=== PATIENT | male | born 1955 | race Caucasian/White ===

== ENCOUNTER → 2016-08-15 | Outpatient (CLI) | payer BC | END | disposition home or self-care (01) | LOC: GMAB 10:43 | PROVIDERS: ATTEND Family Medicine | DX: Z00.01 Encounter for general adult medical examination with abnormal findings (principal) ==

== ENCOUNTER → 2018-05-17 | Outpatient (CLI) | payer BC | LOC: GMAE 10:28 | PROVIDERS: ATTEND Family Medicine | DX: Z00.01 Encounter for general adult medical examination with abnormal findings (principal) ==

== ENCOUNTER → 2018-05-25 | Outpatient (CLI) | payer BC ==
--- NOTE | 2018-05-25 16:52 | US ---
EXAM DESCRIPTION: Aorta: Ultrasound. CLINICAL HISTORY: ENCOUNTER FOR SCREENING FOR OTHER DISORDER COMPARISON: None. TECHNIQUE: Transcutaneous scanning: Two-dimensional and Doppler modes. FINDINGS: Abdominal aorta diameter - Proximal: 3.0 x 2.9 x 2.2 cm. Mid: 2.7 x 2.1 x 1.7 cm. Distal: 2.5 x 1.8 x 1.7 cm. Common Iliac diameter - Right: 10 mm. Left: 12 mm. Other: Atherosclerotic calcification and intimal.. IMPRESSION: Ectasia of the proximal and mid abdominal aorta no definite aneurysm. Normal tapering. No Further imaging follow-up is recommended. Electronically signed by: Helder Roldan MD 05/25/2018 4:49 PM CDT
== END ==
LOC: US 08:25
PROVIDERS: ATTEND Family Medicine
DX: Z13.89 Encounter for screening for other disorder (principal); I77.811 Abdominal aortic ectasia

== ENCOUNTER 2018-08-04 05:35 | Day surgery (SDC) | payer BC ==
[2018-08-04] MEDS ORDERED: LACTATED RINGERS 1,000 ML ONE (07:11)
[2018-08-04] MEDS ORDERED: LACTATED RINGERS 1,000 ML IVS ONE (07:55)
--- NOTE | 2018-08-04 08:35 | OP ---
DATE OF PROCEDURE: 08/04/18 PREOPERATIVE DIAGNOSIS: 1. Colorectal cancer screen. POSTOPERATIVE DIAGNOSIS: 1. Colonoscopy to the cecum. 2. Diverticulosis. PROCEDURE: 1. Colonoscopy. SURGEON: Gurpreet Weiss MD. COMPLICATIONS: None. ANESTHESIA: MAC. INDICATION: Screening colonoscopy. PROCEDURE: Informed consent was obtained prior to sedation. The preprocedure cardiopulmonary assessment was satisfactory. The patient was placed in the left lateral decubitus position and was sedated. The tip of the Olympus colonoscope was inserted in the rectum and guided through the entire colon under direct visualization. The cecum was identified. The ileocecal valve and appendiceal orifice appeared normal. Slow withdrawal was started at this time. Colonoscopy prep was good. Slow withdrawal showed evidence of diverticulosis in the descending colon and sigmoid colon. Retroflexion view of the anorectal area showed hemorrhoids, grade 1. No other abnormalities were identified. The scope was then slowly withdrawn from the patient and the procedure was terminated. RECOMMENDATION: 1. Repeat colonoscopy in 10 years. 2. Cologuard stool sample in 3 years and every 3 years until next recommended colonoscopy. Repeat colonoscopy immediately if Cologuard stool sample is positive. 3. Regular diet. 4. Resume home medications. 5. Followup with GI as needed. #[id number] [facility]
[2018-08-04 09:45] VITALS: BP 121/77; TEMP 97.2; O2SAT 99
[2018-08-04] MEDS ORDERED: PROPOFOL 200 MG/20 ML VIAL IV ONE (10:00)
[2018-08-04] MEDS ORDERED: LIDOCAINE 1% 10 ML VIAL INJ ONE (10:00)
== END 2018-08-04 09:00 | disposition home or self-care (01) ==
LOC: AMB 05:35
DX: Z12.11 Encounter for screening for malignant neoplasm of colon (principal); K57.30 Diverticulosis of large intestine without perforation or abscess without bleeding; K64.0 First degree hemorrhoids; E78.00 Pure hypercholesterolemia, unspecified; E66.9 Obesity, unspecified; Z68.31 Body mass index [BMI] 31.0-31.9, adult; Z79.899 Other long term (current) drug therapy
CPT/HCPCS: 00812; 45378; J3490; J7120

== ENCOUNTER 2018-10-11 06:12 | Emergency (ER) | payer BC ==
[2018-10-11] MEDS ORDERED: KETOROLAC TROMETHAMINE INJ 30 MG/ML VIAL IV ONE (06:41)
--- NOTE | 2018-10-11 06:58 | ED.PDOC ---
History of Present Illness - General Chief Complaint: Problem Stated Complaint: low back flank pain, hx kidney stones Time Seen by Provider: 10/11/18 06:33 Source: patient Exam Limitations: no limitations Additional Information: Pt w cc of right flank pain beginning at midnight. Pain is sharp, 7/10. Pain is constant, not improved or relieved w any factors. Pt w h/o similar sxs in the past w kidney stones. Pt has had surgery for this, basket retrieval but pt is unclear. Pt is o/w asx. Neg CP, SOB, AP, dysuria, hematuria, vomiting. Positive nausea. - History of Present Illness Allergies/Adverse Reactions: Allergies NO KNOWN ALLERGY Allergy (Verified 05/13/15 16:58) Home Medications: Ambulatory Orders Atorvastatin Calcium [Lipitor] 20 mg PO BEDTIME 07/30/18 RX: Meloxicam [Mobic] 1 tablet PO BID 07/30/18 Review of Systems - Review of Systems Constitutional: States: no symptoms reported. Denies: diaphoresis, fever EENTM: States: no symptoms reported Respiratory: States: no symptoms reported. Denies: orthopnea, short of breath Cardiology: States: no symptoms reported. Denies: chest pain Gastrointestinal/Abdominal: States: no symptoms reported, nausea. Denies: abdominal pain, vomiting Musculoskeletal: States: back pain - right flank Skin: States: no symptoms reported Neurological: States: no symptoms reported. Denies: headache Endocrine: States: no symptoms reported Hematologic/Lymphatic: States: no symptoms reported All other Systems: Reviewed and Negative Past Medical History (General) - Patient Medical History Hx Stroke: No Hx Congestive Heart Failure: No Hx Diabetes: No Hx Renal Disease: Yes - hx kidney stones Hx MRSA: No Surgical History: other - Vaccination History Hx Tetanus, Diphtheria Vaccination: No Hx Influenza Vaccination: No Hx Pneumococcal Vaccination: No - Social History Hx Tobacco Use: No Hx Alcohol Use: Yes Hx Substance Use: No Hx Substance Use Treatment: No Hx Depression: No - Female History Patient : No Family Medical History - Family History Mother Family History: Unknown Physical Exam - Physical Exam General Appearance: Anxious, Well Developed, Well Nourished, Other - writhing in bed, uncomfortable Eyes, Ears, Nose, Throat Exam: PERRL/EOMI, normal ENT inspection Neck: full range of motion, supple Cardiovascular/Respiratory: regular rate, rhythm, normal breath sounds, no respiratory distress Gastrointestinal/Abdominal: normal bowel sounds, non tender, soft, no organomegaly, no pulsatile mass Back Exam: normal inspection, CVA tenderness (R) - mild Extremity: normal range of motion, non-tender, no pedal edema 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 10/11/18 08:38 Pt w 8mm stone on CT w severe hydronephrosis and creatinine of 1.4, unclear if elevatation is new or not. Pt will not be able to pass stone on his own, will transfer to [place] for urology consult and definitive mgmt. Have d/w Dr. Ruelas, hospitalist at [facility], who accepts pt in transfer. Pt's VS are stable and he is medical clear for transfer. Pt accepts transfer for higher level of care. - Results/Orders Results/Orders: 10/11/18 08:18 Sodium Chloride 0.9% 1000ML [Ns 1000 ml] 1,000 ml IVS ONCE Laboratory Results WBC 9.1 K/mm3 (4.8-10.8) 10/11/18 06:40 RBC 5.04 M/mm3 (4.70-6.10) 10/11/18 06:40 Hgb 15.8 gm/dL (14.0-18.0) 10/11/18 06:40 Hct 47.0 % (42.0-52.0) 10/11/18 06:40 MCV 93.2 fl (80.0-94.0) 10/11/18 06:40 MCH 31.4 pg (27.0-31.0) H 10/11/18 06:40 MCHC 33.7 g/dL (33.0-37.0) 10/11/18 06:40 RDW 13.9 % (11.5-14.5) 10/11/18 06:40 Plt Count 209 K/mm3 (130-400) 10/11/18 06:40 MPV 8.3 fl (7.40-10.4) 10/11/18 06:40 Absolute Neuts (auto) 7.20 K/uL (1.8-6.8) H 10/11/18 06:40 Absolute Lymphs (auto) 1.00 K/uL (1.0-3.4) 10/11/18 06:40 Absolute Monos (auto) 0.60 K/uL (0.2-0.8) 10/11/18 06:40 Absolute Eos (auto) 0.10 K/uL (0.0-0.4) 10/11/18 06:40 Absolute Basos (auto) 0.10 K/uL (0.0-0.1) 10/11/18 06:40 Neutrophils % 79.6 % (42.0-78.0) H 10/11/18 06:40 Lymphocytes % 11.5 % (20.0-50.0) L 10/11/18 06:40 Monocytes % 6.7 % (2.0-9.0) 10/11/18 06:40 Eosinophils % 1.3 % (1.0-5.0) 10/11/18 06:40 Basophils % 0.9 % (0.0-2.0) 10/11/18 06:40 Sodium 138 mmol/L (135-145) 10/11/18 06:40 Potassium 3.9 mmol/L (3.6-5.0) 10/11/18 06:40 Chloride 104 mmol/L (101-111) 10/11/18 06:40 Carbon Dioxide 22 mmol/L (21-31) 10/11/18 06:40 Anion Gap 15.9 (12-18) 10/11/18 06:40 BUN 26 mg/dL (7-18) H 10/11/18 06:40 Creatinine 1.41 mg/dL (0.6-1.3) H 10/11/18 06:40 BUN/Creatinine Ratio 18.4 (10-20) 10/11/18 06:40 Random Glucose 168 mg/dL (70-105) H 10/11/18 06:40 Serum Osmolality 284.3 mOsm/L (275-295) 10/11/18 06:40 Calcium 9.9 mg/dL (8.4-10.2) 10/11/18 06:40 Total Bilirubin 1.8 mg/dL (0.2-1.0) H 10/11/18 06:40 AST 27 IU/L (10-42) 10/11/18 06:40 ALT 28 IU/L (10-60) 10/11/18 06:40 Alkaline Phosphatase 62 IU/L (42-121) 10/11/18 06:40 Serum Total Protein 7.6 gm/dL (6.4-8.2) 10/11/18 06:40 Albumin 4.8 g/dl (3.2-5.5) 10/11/18 06:40 Globulin 2.8 gm/dL (2.3-3.5) 10/11/18 06:40 Albumin/Globulin Ratio 1.7 (1.1-1.9) 10/11/18 06:40 Urine Color Yellow (Yellow) 10/11/18 06:40 Urine Appearance Sl cloudy (Clear) 10/11/18 06:40 Urine pH 5.5 (4.5-7.8) 10/11/18 06:40 Ur Specific [place] >= 1.030 (1.005-1.030) 10/11/18 06:40 Urine Protein 30 mg/dL 10/11/18 06:40 Urine Glucose (UA) Negative mg/dL (Negative) 10/11/18 06:40 Urine Ketones Trace mg/dL (NEGATIVE) 10/11/18 06:40 Urine Blood Moderate (Negative) H 10/11/18 06:40 Urine Nitrite Negative 10/11/18 06:40 Urine Bilirubin Negative (NEGATIVE) 10/11/18 06:40 Urine Urobilinogen 0.2 mg/dL (0.2-1.0) 10/11/18 06:40 Ur Leukocyte Esterase Negative (Negative) 10/11/18 06:40 Urine RBC 10-20 /hpf H 10/11/18 06:40 Urine WBC 3-5 /hpf H 10/11/18 06:40 Ur Epithelial Cells 1-3 /hpf 10/11/18 06:40 Calcium Oxalate Crystal 2+ /hpf 10/11/18 06:40 Urine Bacteria Rare 10/11/18 06:40 Departure - Departure Clinical Impression: Ureteral stone with hydronephrosis Disposition: Transfer to Hospital Condition: Good Departure Forms: ED Discharge - Pt. Copy, Patient Portal Self Enrollment Referrals: PRAKASH TOMPKINS MD [Primary Care Provider] - 1-2 Weeks Home Medications: Ambulatory Orders Atorvastatin Calcium [Lipitor] 20 mg PO BEDTIME 07/30/18 RX: Meloxicam [Mobic] 1 tablet PO BID 07/30/18 Transfer to Outside Facility - Transfer Information Accepting Provider:: Dr. Ruelas Accepting Facility: [facility] Reason for Transfer: required specialist not available
--- NOTE | 2018-10-11 07:27 | CT ---
PROCEDURE: CT Abdomen and Pelvis Without Intravenous Contrast CLINICAL INDICATION: The patient is 63 years old and is Male; flank pain MAIN TECHNIQUE: Axial computed tomography images of the abdomen and pelvis without intravenous contrast. Sagittal and coronal reformatted images were created and reviewed. As a consequence of the lack of intravenous contrast, there is limited evaluation of the organs and soft tissues. This CT exam was performed using one or more of the following dose reduction techniques: automated exposure control, adjustment of the mA and/or kV according to patient size, and/or use of iterative reconstruction technique. COMPARISON: No relevant prior studies available. FINDINGS: LUNG BASES: Lung bases are unremarkable. HEART: The heart size is enlarged. ABDOMEN: LIVER: Unremarkable noncontrast appearance of the liver. GALLBLADDER AND BILE DUCTS: Unremarkable. No calcified stones. No ductal dilation. PANCREAS: Unremarkable. No ductal dilation. SPLEEN: Unremarkable. No splenomegaly. No splenic lesion noted. ADRENALS: Unremarkable. No mass. KIDNEYS AND URETERS: There is severe RIGHT renal enlargement, perinephric stranding and hydronephrosis. There is ureterectasis extending to the distal lumbar ureter where on axial image 105/193 of series 2, there is an 8 mm obstructing calculus accounting for the findings. More distal to this, the ureter is decompressed. There is also a 1 cm calculus located in the interpolar region of the RIGHT kidney. No left-sided nephrolithiasis. STOMACH AND BOWEL: There is no evidence of diverticulitis. There is no evidence of bowel obstruction. There is No oral contrast opacifying the bowel. There is diverticulosis coli without diverticulitis. PELVIS: APPENDIX: No findings to suggest acute appendicitis. BLADDER: The urinary bladder is underdistended. No stones. REPRODUCTIVE: The prostate gland is enlarged. ABDOMEN and PELVIS: INTRAPERITONEAL SPACE: Unremarkable. No free air. No significant fluid collection. BONES/JOINTS: Facet hypertrophic changes are present in the lower lumbar spine. There is anterior wedging of the T12 vertebral level with a Schmorl's node in the superior endplate. There is moderate narrowing of the L5-S1 disc space. SOFT TISSUES: There is a small fat containing umbilical hernia noted. VASCULATURE: Unremarkable. No abdominal aortic aneurysm. LYMPH NODES: Unremarkable. No significant retroperitoneal or pelvic lymphadenopathy. IMPRESSION: There is severe RIGHT renal enlargement, perinephric stranding and hydronephrosis. There is ureterectasis extending to the distal lumbar ureter where on axial image 105/193 of series 2, there is an 8 mm obstructing calculus accounting for the findings. More distal to this, the ureter is decompressed. Electronically signed by: Conrad Trevino MD 10/11/2018 7:25 AM CDT
[2018-10-11 07:39] VITALS: O2SAT 96
[2018-10-11] MEDS ORDERED: SODIUM CHLORIDE 0.9% 1000ML 1,000 ML IVS ONE (08:18)
[2018-10-11] MEDS ORDERED: ONDANSETRON INJ 4 MG/2 ML VIAL IV ONE (08:18)
[2018-10-11] MEDS ORDERED: MORPHINE SULFATE INJ 10 MG/ML VIAL IV ONE (08:18)
[2018-10-11 09:22] VITALS: BP 156/102; TEMP 96
== END 2018-10-11 09:22 | disposition short-term general hospital (02) ==
LOC: ER 06:12
DX: N13.2 Hydronephrosis with renal and ureteral calculous obstruction (principal)
CPT/HCPCS: 74176; 80053; 81001; 85025; J1885; J2270; J2405; J7030

== ENCOUNTER → 2019-06-17 | Outpatient (CLI) | payer BC ==
[~2019-06-17] MED LIST: IPRATROPIUM/ALBUTEROL 3 ML VIAL NEB ONE
== END ==
LOC: GMAE 11:26
PROVIDERS: ATTEND Family Medicine
DX: Z00.00 Encounter for general adult medical examination without abnormal findings (principal); J44.9 Chronic obstructive pulmonary disease, unspecified
CPT/HCPCS: 84153; 84443; 94060; J7620

== ENCOUNTER 2019-12-19 06:44 | Emergency (ER) | payer BC ==
[2019-12-19] MEDS ORDERED: ONDANSETRON INJ 4 MG/2 ML VIAL IV ONE (07:01)
[2019-12-19] MEDS ORDERED: MORPHINE SULFATE INJ 10 MG/ML VIAL IV ONE (07:01)
--- NOTE | 2019-12-19 07:06 | ED.PDOC ---
History of Present Illness - General Chief Complaint: Back Pain or Injury Stated Complaint: low back pain onset yest 1000 Time Seen by Provider: 12/19/19 07:00 Source: patient, RN notes reviewed, Vital Signs reviewed, old records Exam Limitations: no limitations - History of Present Illness Initial Comments: 64 yo male with intermittent right flank pain that started yesterday at 10 AM. States it felt like his previous stone. No n/v/d. no radiation. pain resolved, but now is back again. denies chest pain or shortness of breath. Timing/Duration: days - 1 Allergies/Adverse Reactions: Allergies NO KNOWN ALLERGY Allergy (Verified 12/19/19 07:03) Home Medications: Ambulatory Orders Atorvastatin Calcium [Lipitor] 20 mg PO BEDTIME 07/30/18 Review of Systems - Review of Systems Constitutional: Denies: chills, fever, malaise EENTM: Denies: blurred vision, ear discharge, mouth pain Respiratory: Denies: cough, short of breath, stridor Cardiology: Denies: chest pain, palpitations, syncope Gastrointestinal/Abdominal: Denies: abdominal pain, diarrhea, nausea, vomiting Genitourinary: Denies: discharge, dysuria, frequency, hematuria Musculoskeletal: States: back pain. Denies: joint pain, joint swelling, muscle pain Skin: Denies: change in color Neurological: Denies: headache, numbness, paresthesia, tingling, tremors, weakness Endocrine: Denies: unexplained weight gain, unexplained weight loss Hematologic/Lymphatic: Denies: easy bleeding, easy bruising Past Medical History (General) - Patient Medical History Hx Seizures: No Hx Stroke: No Hx Dementia: No Hx Asthma: No Hx of COPD: No Hx Cardiac Disorders: No Hx Congestive Heart Failure: No Hx Pacemaker: No Hx Hypertension: No Hx Thyroid Disease: No Hx Diabetes: No Hx Renal Disease: Yes - hx kidney stones Hx Cancer: No Hx of HIV: No Hx Hepatitis C: No Hx MRSA: No - Vaccination History Hx Tetanus, Diphtheria Vaccination: No Hx Influenza Vaccination: No Hx Pneumococcal Vaccination: No - Social History Hx Tobacco Use: No Hx Alcohol Use: Yes - occasional Hx Substance Use: No Hx Substance Use Treatment: No Hx Depression: No - Female History Patient : No Family Medical History - Family History Mother Family History: Unknown Physical Exam - Physical Exam General Appearance: Alert, Comfortable, No apparent distress, Well Developed, Well Groomed, Well Hydrated, Well Nourished Eyes, Ears, Nose, Throat Exam: PERRL/EOMI, normal ENT inspection, TMs normal Neck Exam: non-tender, full range of motion, normal alignment, normal inspection Cardiovascular/Respiratory: regular rate, rhythm, no M/R/G, normal peripheral pulses, no JVD, normal breath sounds, no respiratory distress Peripheral Pulses: radial,right: 2+, radial,left: 2+ Gastrointestinal/Abdominal: normal bowel sounds, non tender, soft, no organomegaly, no pulsatile mass Back Exam: normal inspection, no vertebral tenderness, CVA tenderness (R) Extremity Exam: no evidence of injury, normal range of motion, non-tender, no pedal edema 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, no motor/sensory deficits, alert, normal mood/affect, oriented x 3 Skin Exam: normal color, warm/dry Progress - Progress Progress: 12/19/19 08:36 12/19/19 07:15 EKG STAT Laboratory Results WBC 9.8 K/mm3 (4.8-10.8) 12/19/19 07:20 RBC 4.75 M/mm3 (4.70-6.10) 12/19/19 07:20 Hgb 15.0 gm/dL (14.0-18.0) 12/19/19 07:20 Hct 42.9 % (42.0-52.0) 12/19/19 07:20 MCV 90.3 fl (80.0-94.0) 12/19/19 07:20 MCH 31.5 pg (27.0-31.0) H 12/19/19 07:20 MCHC 34.9 g/dL (33.0-37.0) 12/19/19 07:20 RDW 12.8 % (11.5-14.5) 12/19/19 07:20 Plt Count 241 K/mm3 (130-400) 12/19/19 07:20 MPV 7.4 fl (7.40-10.4) 12/19/19 07:20 Absolute Neuts (auto) 8.30 K/uL (1.8-6.8) H 12/19/19 07:20 Absolute Lymphs (auto) 0.80 K/uL (1.0-3.4) L 12/19/19 07:20 Absolute Monos (auto) 0.70 K/uL (0.2-0.8) 12/19/19 07:20 Absolute Eos (auto) 0.10 K/uL (0.0-0.4) 12/19/19 07:20 Absolute Basos (auto) 0.10 K/uL (0.0-0.1) 12/19/19 07:20 Neutrophils % 83.9 % (42.0-78.0) H 12/19/19 07:20 Lymphocytes % 7.7 % (20.0-50.0) L 12/19/19 07:20 Monocytes % 7.3 % (2.0-9.0) 12/19/19 07:20 Eosinophils % 0.6 % (1.0-5.0) L 12/19/19 07:20 Basophils % 0.5 % (0.0-2.0) 12/19/19 07:20 Sodium 134 mmol/L (135-145) L 12/19/19 07:20 Potassium 4.2 mmol/L (3.6-5.0) 12/19/19 07:20 Chloride 100 mmol/L (101-111) L 12/19/19 07:20 Carbon Dioxide 22 mmol/L (21-31) 12/19/19 07:20 Anion Gap 16.2 (12-18) 12/19/19 07:20 BUN 15 mg/dL (7-18) 12/19/19 07:20 Creatinine 1.50 mg/dL (0.6-1.3) H 12/19/19 07:20 BUN/Creatinine Ratio 10.0 (10-20) 12/19/19 07:20 Random Glucose 131 mg/dL (70-105) H 12/19/19 07:20 Serum Osmolality 270.9 mOsm/L (275-295) L 12/19/19 07:20 Calcium 9.1 mg/dL (8.4-10.2) 12/19/19 07:20 Total Bilirubin 1.8 mg/dL (0.2-1.0) H 12/19/19 07:20 AST 25 IU/L (10-42) 12/19/19 07:20 ALT 23 IU/L (10-60) 12/19/19 07:20 Alkaline Phosphatase 56 IU/L (42-121) 12/19/19 07:20 Troponin I < 0.02 ng/mL (0.01-0.05) 12/19/19 07:20 Serum Total Protein 7.7 gm/dL (6.4-8.2) 12/19/19 07:20 Albumin 4.2 g/dl (3.2-5.5) 12/19/19 07:20 Globulin 3.5 gm/dL (2.3-3.5) 12/19/19 07:20 Albumin/Globulin Ratio 1.2 (1.1-1.9) 12/19/19 07:20 Lipase 33 U/L (22-51) 12/19/19 07:20 Urine Color Yellow (Yellow) 12/19/19 07:40 Urine Appearance Clear (Clear) 12/19/19 07:40 Urine pH 6.5 (4.5-7.8) 12/19/19 07:40 Ur Specific [place] 1.020 (1.005-1.030) 12/19/19 07:40 Urine Protein Negative mg/dL 12/19/19 07:40 Urine Glucose (UA) Negative mg/dL (Negative) 12/19/19 07:40 Urine Ketones Negative mg/dL (NEGATIVE) 12/19/19 07:40 Urine Blood Moderate (Negative) H 12/19/19 07:40 Urine Nitrite Negative 12/19/19 07:40 Urine Bilirubin Negative (NEGATIVE) 12/19/19 07:40 Urine Urobilinogen 0.2 mg/dL (0.2-1.0) 12/19/19 07:40 Ur Leukocyte Esterase Negative (Negative) 12/19/19 07:40 Urine RBC 30-40 /hpf H 12/19/19 07:40 Urine WBC 5-10 /hpf H 12/19/19 07:40 Ur Epithelial Cells 5-10 /hpf 12/19/19 07:40 Urine Bacteria Rare 12/19/19 07:40 Urine Mucus Trace 12/19/19 07:40 - Results/Orders Results/Orders: patient given morphine and zofran. If kidney function wnl will also give toradol. Called Dr. Paige office appointment made today at 10 AM. Patient states he can get a ride. Told patient not to drive after morphine. The data reviewed when caring for this patient included: nurse notes, prior records, etc. The history and assessments from nurses notes were reviewed and considered, and the patient's home medication list was also reviewed and considered. My assessment and the results of testing completed here in the ED were discussed with the patient/family. All questions were answered, and they express understanding of my assessment and the plan. They have been instructed to return if their symptoms worsen, and have been asked to follow up with their urology to recheck today's presenting complaint. return precautions given. Patient has appointment with urology today, will hold off and prescribing pain meds and flomax as the appointment is in one hour. Caroline Wylie DO #[id number] - EKG/XRAY/CT EKG: Sinus Comments: normla intervals, normal axis, hr 89, no acute ischemia. CT: 11 x 7 mm stone right uteropelvic junction. Departure - Departure Clinical Impression: Ureteral stone with hydronephrosis Time of Disposition: 08:26 Disposition: Discharge to Home or Self Care Departure Forms: ED Discharge - Pt. Copy, Patient Portal Self Enrollment Instructions: DI for Low Back Pain, Kidney Stones in Adults Referrals: PRAKASH TOMPKINS MD [Primary Care Provider] - 1-2 Weeks AILIN PAIGE [Referring] - 1-2 Days Home Medications: Ambulatory Orders Atorvastatin Calcium [Lipitor] 20 mg PO BEDTIME 07/30/18
--- NOTE | 2019-12-19 07:39 | CT ---
EXAM: CT Abdomen and Pelvis Without Intravenous Contrast CLINICAL HISTORY: The patient is 64 years old and is Male; right flank pain TECHNIQUE: Axial computed tomography images of the abdomen and pelvis without intravenous contrast. Sagittal and coronal reformatted images were created and reviewed. This CT exam was performed using one or more of the following dose reduction techniques: automated exposure control, adjustment of the mA and/or kV according to patient size, and/or use of iterative reconstruction technique. COMPARISON: CT abdomen and pelvis October 11, 2018. FINDINGS: Lung bases: Unremarkable. No mass. No consolidation. ABDOMEN: Liver: Unremarkable. Gallbladder and bile ducts: Unremarkable. No calcified stones. No ductal dilation. Pancreas: Unremarkable. No ductal dilation. Spleen: Unremarkable. No splenomegaly. Adrenals: Unremarkable. No mass. Kidneys and ureters: Moderate right hydronephrosis with perinephric stranding and a 7.0 x 5.3 x 11.0 mm calculus in the proximal ureter. Punctate left nephrolithiasis. No left-sided hydronephrosis or left ureter stone. Stomach and bowel: Colonic diverticulosis. No bowel dilatation or obstruction. No bowel wall thickening. PELVIS: Appendix: The visualized appendix is normal. No pericecal inflammation to suggest acute appendicitis. Bladder: Unremarkable. No stones. Reproductive: Unremarkable as visualized. ABDOMEN and PELVIS: Intraperitoneal space: Unremarkable. No free air. No significant fluid collection. Bones/joints: Old T12 Schmorl's node without significant loss of height. No acute fracture. No dislocation. Soft tissues: Unremarkable. Vasculature: Unremarkable. No abdominal aortic aneurysm. Lymph nodes: No pathologically enlarged lymph nodes. IMPRESSION: 1. Moderate right hydronephrosis with perinephric stranding and a 7.0 x 5.3 x 11.0 mm calculus in the proximal ureter. 2. Punctate left nephrolithiasis. 3. Colonic diverticulosis. Electronically signed by: Betzy Oseguera MD 12/19/2019 7:37 AM [employer]
[2019-12-19 08:00] VITALS: O2SAT 93
[2019-12-19 08:37] VITALS: TEMP 97.1
[2019-12-19 08:38] VITALS: BP 128/91
== END 2019-12-19 08:38 | disposition home or self-care (01) ==
LOC: ER 06:44
DX: N13.2 Hydronephrosis with renal and ureteral calculous obstruction (principal); R10.9 Unspecified abdominal pain; Z87.442 Personal history of urinary calculi
CPT/HCPCS: 36415; 74176; 80053; 81001; 83690; 84484; 85025; 93005; J2270; J2405